=== PATIENT | female | born 1980 | race African-American/Black ===

== ENCOUNTER → 2018-05-28 | Outpatient (CLI) | payer OTHER ==
[~2018-05-28] MED LIST: PNV1TABL12 PO; POLY17PO29 PO
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
== END | disposition home or self-care (01) ==
LOC: PNCL 07:42
PROVIDERS: ATTEND Anesthesiology
DX: M54.2 Cervicalgia (principal); M79.601 Pain in right arm; M25.511 Pain in right shoulder; Z90.721 Acquired absence of ovaries, unilateral
CPT/HCPCS: G0463

== ENCOUNTER → 2018-06-05 | Outpatient (CLI) | payer OTHER ==
[~2018-06-05] MED LIST changes: +IOHEXOL 180 MG/ML 10 ML VIAL. ONE; +methylPREDNISolone ACETATE 40 MG/ML VIAL. ONE; +methylPREDNISolone ACETATE 80 MG/ML VIAL. ONE
--- NOTE | 2018-06-05 22:16 | PAIN ---
DATE OF SERVICE: 06/05/2018 PROGRESS NOTE FOR PAIN CLINIC DIAGNOSES: Cervical radiculopathy with cervicalgia and cervical spondylosis. HISTORY OF PRESENT ILLNESS: The patient is a 37-year-old female who returns for followup status post initial evaluation and preauthorization for cervical epidural steroid injection. The patient reports still pain in the base of the neck and right shoulder and arm, as it was previously. The patient reports the Medrol Dosepak we tried did quite a bit decreased the pain by about 80% while she was taking it, but after about 6 days, the pain returned in the base of the neck, right upper extremity and right shoulder, radiating to the right arm and hand, with some tingling and numbness. The patient reports the pain in the neck is aching and tight, also some pain in the right scapular region, which is tight as well. The patient reports her pain is an 8 on a scale of 10 at its worst, 3 on average, 1 at its least and it is a 3 today. The patient reports no new motor or sensory deficits. No new changes. Better with lying down, but does awaken her from sleep occasionally, not every night. The patient reports no new motor or sensory deficits or other complaints. PHYSICAL EXAMINATION: VITAL SIGNS: The patient's blood pressure is 124/78, pulse 77, respirations are 18 and temperature is 98.3 degrees Fahrenheit. Height is 5 feet 5 inches, weight is 225 pounds. GENERAL: The patient is awake, alert, oriented and appropriate. She has a very pleasant demeanor. HEENT EXAMINATION: Shows normocephalic, atraumatic. Extraocular movements are intact and symmetrical. Oral cavity, mucous membranes are moist and pink. Dentition is intact. NECK: Shows anterior throat supple, without palpable lymphadenopathy noted. Swallow reflex is symmetrical. CHEST: Shows normal on inspection. Breath sounds are clear to auscultation bilaterally. HEART: Shows S1, S2 clear. No murmurs auscultated. ABDOMEN: Soft, nontender and nondistended. No palpable organomegaly is noted. No rebound or guarding demonstrated. BACK: Shows spine grossly in the midline. Normal-appearing thoracic kyphosis, cervical lordotic curvature. Cervical paraspinous muscle shows symmetrical on inspection. With palpation, there is a moderate tenderness, more on the right than the left inferior aspect of the cervical paraspinous musculature as well as superior medial trapezius, but good rotational motion both laterally as well as extension and flexion, without significant increase in pain. EXTREMITIES: The patient's upper extremities show deep tendon reflexes 2+ in the biceps and triceps tendons. Motor exam is strong with approximately 4 on a scale of 5 right information technology analyst strength and 5/5 on the left. Peripheral pulses are 2+ radial distribution. No peripheral edema is noted bilaterally. Options were discussed with the patient. The patient's old chart was reviewed as was her current medication regimen updated. Current review of systems updated today as well. We will proceed with a cervical epidural steroid injection today with fluoroscopic guidance. Risks were again discussed including, but not limited to bleeding, infection, possibility of epidural hematoma, subsequent neurologic compromise, dural puncture, headaches, spinal cord and/or nerve damage, side effects of steroid medication and poor results regarding pain control. The patient understands and wishes to proceed. The patient will return to the clinic in approximately 2 weeks for followup. She was counseled on her return appointment, activity level and side effects to be aware of. DIAGNOSES: Cervical radiculopathy with cervicalgia and cervical spondylosis. PROCEDURE: Cervical epidural steroid injection in a translaminar approach, C6-C7 level using C-arm fluoroscopic guidance under sterile prep and drape using local anesthetic. MEDICATIONS INJECTED: A total of 120 mg Depo-Medrol plus 5 mL of preservative-free normal saline and 2 mL of contrast. CONDITION AT DISCHARGE: Stable. The patient tolerated the procedure well, had no complications. JOHN HAYNES MD DR: MARK/brock JOB#: [id number] / [id number]
== END | disposition home or self-care (01) ==
LOC: PNCL 07:58
PROVIDERS: ATTEND Anesthesiology
DX: M47.22 Other spondylosis with radiculopathy, cervical region (principal)
CPT/HCPCS: 62321; J1030; J1040; Q9965

== ENCOUNTER → 2018-06-20 | Outpatient (CLI) | payer OTHER ==
[~2018-06-20] MED LIST changes: -IOHEXOL 180 MG/ML 10 ML VIAL. ONE
--- NOTE | 2018-06-21 03:00 | PAIN ---
DATE OF SERVICE: 06/20/2018 DIAGNOSES: Cervical radiculopathy with cervicalgia and cervical spondylosis. HISTORY OF PRESENT ILLNESS: The patient is a 37-year-old female who returns for followup status post cervical epidural steroid injection x 1. The patient reports about 50% improvement in the base of the neck and right shoulder. The patient reports still some pain in the neck and shoulders, but much improved. She had increased activity with greater ease and comfort after about 2 days following the injection. The pain was significantly reduced with increasing work activities, home activities, distance walking, traveling with greater ease and comfort. The patient reports she is sleeping well at night, does not awaken her from sleep. The patient reports pain is 7 on a scale of 10 at its worst, 6 on average, 3 at its least over the past week and is 3 today. The patient reports it is aching and dull, shooting in the right upper extremity as it was, but much less frequently. The patient reports no new motor or sensory deficits, no new bowel or bladder incontinence or other complaints. The patient does report that she discovered she was on 06/13/2018. PHYSICAL EXAMINATION: VITAL SIGNS: The patient's blood pressure is 115/84, pulse 96, respirations 16, temperature 98.0 degrees Fahrenheit, height is 5 feet 5 inches, weight is 222 pounds. GENERAL: The patient is awake, alert, oriented, appropriate, very pleasant demeanor. HEENT: Head normocephalic, atraumatic. Extraocular muscles are intact and symmetrical. Oral cavity: Mucous membranes moist and pink. Dentition is intact. NECK: Shows anterior throat supple without palpable lymphadenopathy noted. Swallow reflex symmetrical. CHEST: Shows normal with inspection. Breath sounds clear to auscultation bilaterally. HEART: Shows S1, S2 clear. No murmurs auscultated. ABDOMEN: Soft, nontender, nondistended. BACK: Shows spine grossly in the midline. Cervical paraspinous muscle shows symmetrical on inspection, on palpation shows some moderate tenderness in the inferior aspect of the right cervical paraspinous musculature as well as superior medial trapezius, but without trigger points. The patient has good rotational motion of the cervical spine, both laterally greater than 45 degrees, closer to 90 degrees as well as full extension, full flexion without limitation or pain reported. EXTREMITIES: Upper extremities show deep tendon reflexes 2+ in the biceps and triceps tendons. Motor exam is approximately 4 on a scale of 5 on the right with risk intern strength, bicep and tricep flexion 5/5 on the left. Peripheral pulses are 2+ radial distribution. No peripheral edema is noted bilaterally. Options were discussed with the patient. The patient's old chart was reviewed as was her current medication regimen updated. Current review of systems updated today as well. We will proceed with a second cervical epidural steroid injection today. Risks were again discussed including, but not limited to bleeding, infection, possibility of epidural hematoma, subsequent neurologic compromise, dural puncture, headaches, spinal cord and/or nerve damage, side effects of steroid medication and poor results regarding pain control. The patient understands and wished to proceed. The patient will return to clinic in approximately 2 weeks for followup. She was counseled as to return appointment, activity level and side effects to be aware of. DIAGNOSES: Cervical radiculopathy with cervicalgia and cervical spondylosis. PROCEDURE: Cervical epidural steroid injection, translaminar approach C6-C7 level using C-arm under sterile prep and drape using local anesthetic. No fluoroscopy as the patient is . MEDICATION INJECTED: A total of 120 mg Depo-Medrol plus 5 mL of preservative-free normal saline. CONDITION AT DISCHARGE: Stable. The patient tolerated the procedure well, had no complications. JOHN HAYNES MD DR: MARK/brock JOB#: [id number] / [id number]
== END | disposition home or self-care (01) ==
LOC: PNCL 09:48
PROVIDERS: ATTEND Anesthesiology
DX: O26.891 Other specified pregnancy related conditions, first trimester (principal); M47.22 Other spondylosis with radiculopathy, cervical region
CPT/HCPCS: 62321; J1030; J1040